=== PATIENT | male | born 1985 ===

== ENCOUNTER 2017-01-27 20:03 | Inpatient (IN) | payer MEDICAID ==
[2017-01-27 20:09] VITALS: O2SAT 97
[2017-01-27 21:30] LABS: BASO # 0.1 K/uL (0.0-0.2); BASO % 0.9 % (0.0-2.0); EOS # 0.1 K/uL (0.0-0.7); EOS % 0.4 % (0.0-4.0); HEMATOCRIT 46.7 % (35.0-51.0); LYMPH # 3.4 K/uL (1.0-4.3); LYMPH % 27.8 % (20.0-40.0); MEAN CELL VOLUME 91.4 fl (80.0-94.0); MEAN CORPUSCULAR HEMOGLOBIN 30.1 pg (27.0-31.0); MEAN PLATELET VOLUME 8.4 fl (7.2-11.7); MONO # 1.2 K/uL (0.0-0.8); MONO % 9.4 % (0.0-10.0); NEUT # 7.5 K/uL (1.8-7.0); NEUT % 61.5 % (50.0-75.0); WHITE BLOOD COUNT 12.2 K/uL (4.8-10.8)
[2017-01-27 21:54] LABS: ALB/GLOB RATIO 1.5 (1.0-2.1); ALCOHOL SERUM 23 mg/dl (0-10); ALKALINE PHOSPHATASE 60 U/L (38-126); ALT/SGPT 58 U/L (21-72); AST/SGOT 52 U/L (17-59); BILIRUBIN,TOTAL 0.6 mg/dl (0.2-1.3); BLOOD UREA NITROGEN 15 mg/dl (9-20); CALCIUM 9.5 mg/dL (8.4-10.2); CARBON DIOXIDE 27 mmol/L (22-30); CHLORIDE 102 mmol/L (98-107); GFR AFRICAN-AMERICAN > 60; GLUCOSE,RANDOM 113 mg/dL (75-110); POTASSIUM 3.9 MMOL/L (3.6-5.0); SODIUM 144 mmol/l (132-148); TOTAL PROTEIN 7.8 G/DL (6.3-8.2)
--- NOTE | 2017-01-27 23:34 | ED PDOC ---
HPI: Psych/Substance Abuse Time Seen by Provider: 01/27/17 20:10 Chief Complaint (Nursing): Psychiatric Evaluation Chief Complaint (Provider): Suicidal Ideation History Per: Patient History/Exam Limitations: no limitations Current Symptoms Are (Timing): Still Present Suicide/Self Injury Attempted (Context): None Modifying Factor(s): Alcohol, Marijuana Associated Symptoms: Other (auditory hallucinations) Additional Complaint(s): 31 year old male brought in by EMS presents to ED for a psychiatric evaluation and has a past medical history of schizoaffective disorder. Patient self- reports auditory hallucinations and notes suicidal thoughts with a plan to OD. Admits to alcohol and marijuana use. PCP: [facility] Past Medical History Reviewed: Historical Data, Nursing Documentation, Vital Signs Vital Signs: Last Vital Signs Temp 98.0 F 01/27/17 20:05 Pulse 94 H 01/27/17 20:05 Resp 16 01/27/17 20:05 BP 154/91 H 01/27/17 20:05 Pulse Ox 97 01/27/17 20:05 - Medical History PMH: Schizophrenia - Surgical History Surgical History: No Surg Hx - Family History Family History: States: No Known Family Hx - Social History Alcohol: Other ((+) drinker) Drugs: Cannabis - Allergies Allergies/Adverse Reactions: Allergies Allergy/AdvReac Type Severity Reaction Status Date / Time No Known Allergies Allergy Verified 01/27/17 20:05 Review of Systems ROS Statement: Except As Marked, All Systems Reviewed And Found Negative Psych: Positive for: Psychosis ((+) auditory hallucinations), Suicidal ideation Physical Exam - Reviewed Nursing Documentation Reviewed: Yes Vital Signs Reviewed: Yes - Physical Exam Appears: Positive for: Non-toxic, No Acute Distress Skin: Positive for: Normal Color, Warm, Dry Eye Exam: Positive for: Normal appearance ENT: Positive for: Normal ENT Inspection Cardiovascular/Chest: Positive for: Regular Rate, Rhythm. Negative for: Bradycardia Respiratory: Positive for: Normal Breath Sounds. Negative for: Respiratory Distress Gastrointestinal/Abdominal: Positive for: Normal Exam, Soft. Negative for: Tenderness Back: Positive for: Normal Inspection Extremity: Positive for: Normal ROM. Negative for: Deformity Neurologic/Psych: Positive for: Alert, Oriented. Negative for: Motor/Sensory Deficits - Laboratory Results Result Diagrams: 01/27/17 21:23 01/27/17 21:23 - ECG O2 Sat by Pulse Oximetry: 97 (RA) Pulse Ox Interpretation: Normal Medical Decision Making Medical Decision Makin Initial impression: auditory hallucinations and suicidal ideation in setting of known schizophrenia Initial plan: * EKG * EtOH serum * Labs * UDrug Sreen * Crisis eval * CXR * Accucheck * UA * 1:1 OBS 2329 Labs reviewed: no clinically significant abnormalities. Patient will be admitted (INPATIENT PSYCH) for schizoaffective disorder under Dr. Wolf. Patient is medically stable for psychiatric admission. Scribe Attestation: Documented by Flori Lopez acting as a scribe for Jose Katz MD. Scribe Attestation: All medical record entries made by the Scribe were at my direction and personally dictated by me. I have reviewed the chart and agree that the record accurately reflects my personal performance of the history, physical exam, medical decision making, and the department course for this patient. I have also personally directed, reviewed, and agree with the discharge instructions and disposition. Disposition - Clinical Impression Clinical Impression: Schizoaffective disorder - Patient ED Disposition Is Patient to be Admitted: Yes - Disposition Disposition Time: 23:30 Condition: STABLE - Pt Status Changed To: Hospital Disposition Of: Inpatient (INPATIENT PSYCH) - Admit Certification Admit to Inpatient:: After my assessment, the patient will require hospitalization for at least two midnights. This is because of the severity of symptoms shown, intensity of services needed, and/or the medical risk in this patient being treated as an outpatient.
[2017-01-27 23:40] LABS: RBC URINE 3 /hpf (0-3); URINE BILIRUBIN NEGATIVE (NEGATIVE); URINE BLOOD NEGATIVE (NEGATIVE); URINE COLOR YELLOW (YELLOW); URINE GLUCOSE (UA) NEG (Normal); URINE KETONE TRACE mg/dL (NEGATIVE); URINE LEUKOCYTE ESTERASE NEG Leu/uL (Negative); URINE PROTEIN 30 mg/dL (NEGATIVE); URINE UROBILINOGEN 0.2-1.0 mg/dL (0.2-1.0); WBC URINE 1 /hpf (0-5)
[2017-01-28] MEDS ORDERED: Alum-Mag Hydrox-Simethicone Susp (30 mL) PO PRN (01:53)
[2017-01-28] MEDS ORDERED: Magnesium Hydroxide Susp 30 ml UD PO PRN (01:53)
[2017-01-28] MEDS ORDERED: DiphenhydrAMINE 50 mg/ml Inj IM PRN (01:53)
--- NOTE | 2017-01-28 02:03 | PCM.BM ---
Treatment Plan Problems - Problems identified on initial assessmt Auditory Hallucinations Date Initiated: 01/28/17 Time Initiated: 02:02 Assessment reference: NA Status: Active Treatment assets and liabiliti Patient Assests: cooperative, ADL independent, negotiates basic needs Patient Liabilities: poor support system
--- NOTE | 2017-01-28 11:16 | CARD ---
APPROVED REPORT EKG Measurement Heart [id number] <Conclusion> Normal sinus rhythm Normal ECG
[2017-01-28] MEDS: Risperidone M tab 1 MG PO SCH ×2 (13:26→18:20)
--- NOTE | 2017-01-28 14:34 | PCM.PSYCH ---
Initial Psychiatric Evaluation - Initial Psychiatric Evaluation Legal Status: Capacity Chief Complaint (in patient's own words): I AM DEPRESSED Patient's Reaction to Hospitalization: PT AGREED History of Present Illness and Precipitating Events: Pt is a 31 y/o male with previous history of polysubstance use and schizoaffective disorder presenting in the ER with complaints of suicidal ideation an auditory hallucinations. Pt stated that he has been feeling depressed for several years. Pt stated that he is having thoughts of overdosing on a strong drug such as heroin. Pt denied any prior hx of heroin abuse or experimentation. Pt denied any prior hx of suicide attempts. Pt stated that he does not want to , however reports that the voices are difficult to cope with. Pt denied current or past HI. Pt stated that he drank a pint of vodka n and smoked two marijuana joints prior to presenting to ER . Pt denied any prior hx of self-harm behaviors. Pt reports that he is homeless and has been noncompliant with treatment since 2005. Pt reports that he previously was living in [place], however moved to [place] about a month ago. denied manic symptoms, denied suicidal ideations on the unit Current Medications: Active Medications Generic Name Dose Route Start Last Admin Trade Name Freq PRN Reason Stop Dose Admin Acetaminophen 650 mg 01/28/17 01:53 Tylenol 325mg Tab PO Q4 PRN Pain, moderate (4-7) Al Hydrox/Mg Hydrox/Simethicone 30 ml 01/28/17 01:53 Maalox Plus 30 Ml PO Q4 PRN Dyspepsia Diphenhydramine HCl 50 mg 01/28/17 01:53 Benadryl IM Q6 PRN Extrapyramidal S/S Unable PO Diphenhydramine HCl 50 mg 01/28/17 01:53 Benadryl PO Q6 PRN Extrapyramidal Symptoms Diphenhydramine HCl 50 mg 01/28/17 01:56 Benadryl PO HS PRN Sleep Gabapentin 100 mg 01/28/17 13:00 01/28/17 13:26 Neurontin PO Not Given TID ANNEMARIE Haloperidol 5 mg 01/28/17 01:53 Haldol PO Q4 PRN Agitation Haloperidol Lactate 5 mg 01/28/17 01:53 Haldol IM Q4 PRN Agitation, Unable to Take PO Lorazepam 2 mg 01/28/17 01:53 Ativan IM Q4 PRN Anxiety/Agitation,Unable PO Lorazepam 2 mg 01/28/17 01:53 Ativan PO Q4 PRN Anxiety/Agitation Magnesium Hydroxide 30 ml 01/28/17 01:53 Milk Of Magnesia PO HS PRN Constipation Risperidone 1 mg 01/28/17 11:54 01/28/17 13:26 Risperdal M-Tab PO Not Given BID ANNEMARIE Past Psychiatric History - Past Psychiatric History Explanation of prior treatment: multiple inpatient hospitalizations History of ETOH/Drug Use: hx of polysubstance use History of Family Illness: denied Pertinent Medical Hx (Current Medical&Sleep Prob, Allergies): Allergies Allergy/AdvReac Type Severity Reaction Status Date / Time No Known Allergies Allergy Verified 01/27/17 20:05 Mental Status Examination - Personal Presentation Personal Presentation: Looks older than stated age Additional comments: unkempt, irritable - Affect Affect: Constricted, Depressed - Motor Activity Motor Activity: Psychomotor Retardation - Reliability in Providing Information Reliability in Providing Information: Poor, due to alteration in thoughts, Poor , due to altered mood - Speech Speech: Disorganized - Mood Mood: Depressed, Anxious - Formal Thought Process Formal Thought Process: Hallucinations, Circumstantial - Hallucinations/Delusions Hallucinations: Auditory Additional comments: reported non command auditory hallucinations - Obsessions/Compulsions Obsessions: No Compulsions: No - Cognitive Functions Orientation: Person, Place Sensorium: Alert Attention/Concentration: Easily distracted Abstract Thinking: [place] Judgement: Imparied, as evidence by: Poor judgement, Imparied, as evidence by: Lack of insight into illness - Risk Risk: Withdrawal, Diminished functioning - Strength & Assets Inventory Strength & Assets Inventory: Life experience - Limitations Additional comments: poor compliance DSM 5 DX - DSM 5 DSM 5 Diagnosis: start ativan prn for symptoms and signs of alcohol withdrawal neurontin 100mg tid risperdal 1mg bid group and motivational therapy - Recommended/Plan of Treatment Treatment Recommendations and Plan of Treatment: 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
[2017-01-29 09:14] VITALS: BP 154/106; PULSE 99; RESP 20; TEMP 97.7
[2017-01-29] MEDS: Risperidone M tab 1 MG PO SCH (10:14)
--- NOTE | 2017-01-29 14:36 | PCM.PYCHDC ---
Mental Status Examination - Mental Status Examination Orientation: Person, Place Memory: Intact Mood: Neutral Affect: Constricted Speech: Loud Attention: WNL Concentration: WNL Association: WNL Fund of Knowledge: Poor Formal Thought Process: Circumstantial Description of patient's judgement and insight: impaired insight and poor judgement Psychotic Thoughts and Behaviors: pt denied any current psychotic symptoms, non elicited Suicidal Ideation: No Current Homicidal Ideation?: No Discharge Summary - Discharge Note Reason for Hospitalization: pt is is a 31 y/o male with previous history of polysubstance use and schizoaffective disorder presenting in the ER with complaints of suicidal ideation an auditory hallucinations. Pt stated that he has been feeling depressed for several years. Pt stated that he is having thoughts of overdosing on a strong drug such as heroin. Pt denied any prior hx of heroin abuse or experimentation. Pt denied any prior hx of suicide attempts. Pt stated that he does not want to , however reports that the voices are difficult to cope with. Pt denied current or past HI. Pt stated that he drank a pint of vodka n and smoked two marijuana joints prior to presenting to ER . Pt denied any prior hx of self-harm behaviors. Pt reports that he is homeless and has been noncompliant with treatment since 2005. Pt reports that he previously was living in [place], however moved to [place] about a month ago. denied manic symptoms, denied suicidal ideations on the unit Consultations:: List each consultation separately and include: 1. Reason for request. 2. Findings. 3. Follow-up Summary of Hospital Course include:: 1. Description of specific treatment plan utilized for patients during their course of treatmen. 2. Summarize the time- course for resolution of acute symptoms and/or regressed behaviors. 3. Describe issues identified and worked on during hospitalization. 4. Describe medication utilized. 5. Describe medical problems identified and treated. 6. Reassessment of suicide risk Summary of Hospital Course: Pt ion admission was started on risperidone however pt continued to be isolative in his room, refused medications, refused to attaend groups, pt requested to be dischrged against medical advise pt was educated about benifits of compliance with treatment and risk of relapse on discharge he continued to request discharge pt was discharged against medical advise and mental status on discharge, pt denied any current suicidal or homicidal ideations denied perceptual disturbances, non were ellicited, at current mental status pt not danger to self or others - Final Diagnosis (DSM 5) Condition upon Discharge: STABLE Disposition: HOME/ ROUTINE Follow-up Treatment Plan: 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
== END 2017-01-29 14:49 | disposition home or self-care (01) | DRG 750 ==
LOC: H.ER 20:03 → H.ERHOLD 23:24 → H.PSYCH 01-28 01:40
PROVIDERS: ADMIT Psychiatry & Neurology Psychiatry; ATTEND Psychiatry & Neurology Psychiatry
PROC: HZ52ZZZ Individual Psychotherapy for Substance Abuse Treatment, Cognitive-Behavioral (ICD-10-PCS; principal; 2017-01-27)
PROC: GZHZZZZ Group Psychotherapy (ICD-10-PCS; 2017-01-27)
PROC: GZ58ZZZ Individual Psychotherapy, Cognitive-Behavioral (ICD-10-PCS; 2017-01-27)
DX: F10.14 Alcohol abuse with alcohol-induced mood disorder (principal); F25.9 Schizoaffective disorder, unspecified; R45.851 Suicidal ideations; F12.159 Cannabis abuse with psychotic disorder, unspecified; Y90.1 Blood alcohol level of 20-39 mg/100 ml; Z91.19 Patient's noncompliance with other medical treatment and regimen; Z59.0 Homelessness